=== PATIENT | male | born 1950 | race Caucasian/White ===

== ENCOUNTER 2018-01-21 07:21 | Day surgery (SDC) | payer MEDICARE, OTHER ==
[2018-01-21] MEDS ORDERED: MIDAZOLAM 2 MG/2 ML INJ ONE (10:36)
[2018-01-21] MEDS ORDERED: PROPOFOL INJ 200 MG/20 ML VIAL IV ONE (10:36)
[2018-01-21] MEDS ORDERED: PROMETHAZINE HCL INJ 25 MG/1 ML VIAL IV PRN (11:08)
[2018-01-21] MEDS ORDERED: DIPHENHYDRAMINE HCL 50 MG/ML VIAL IV PRN (11:08)
[2018-01-21] MEDS ORDERED: FENTANYL CITRATE INJ/PF 100 MCG/2 ML AMPUL IV PRN ×3 (11:08)
--- NOTE | 2018-01-21 11:54 | Operative Report ---
Operative Report DATE OF SURGERY: 01/21/18 Operative Report: The risks, benefits and alternatives of the procedure including risks of bleeding, perforation requiring surgery I explained to the patient in detail and informed consent is obtained. Patient is taken to the endoscopy suite and placed in the left, lateral decubital position. Timeout was called. Propofol medications administered. A rectal examination is done which did not reveal any masses, tears or fissures. An Olympus videoscope was inserted into the patient's rectum. Scope was then carefully advanced all the way to the cecum. The cecum was identified by the usual anatomical landmarks including the ileocecal valve and appendiceal office. Photodocumentation was obtained. Prep is good. Scope was then sequentially pulled back via the various segments of the colon including the ascending colon, hepatic flexure, transverse colon, splenic flexure, descending colon finally in to the rectosigmoid portions of the colon. Retroflexion maneuver is performed. The risks benefits and alternatives of the procedure explained to the patient in detail and informed consent is obtained.A reasonably try to swallow GIF Olympus video scope was inserted into the patient's mouth and hypopharynx, the esophagus is identified intubated and insufflated, the scope was then advanced through the esophagus stomach and duodenum, retroflexion maneuver is done the esophagus stomach and first and second portions of the duodenum examined PREOPERATIVE DIAGNOSIS: Gastroesophageal reflux disease. Colorectal cancer screening POSTOPERATIVE DIAGNOSIS: 3 polyps noted, 1 in the hepatic flexure that was removed and retrieved via snare polypectomy, the second at the splenic flexure and the third in the descending colon all of which are placed in separate containers. Diverticulosis. Internal hemorrhoids. Esophagitis versus Loaiza' s status post biopsy. Hiatal hernia. Gastritis status post biopsy rule out Helicobacter pylori OPERATION: Colonoscopy with snare polypectomy. EGD with biopsy SURGEON: PADMINI CORDOVA ANESTHESIA: LMAC TISSUE REMOVED OR ALTERED: As noted above. COMPLICATIONS: None. ESTIMATED BLOOD LOSS: None. INTRAOPERATIVE FINDINGS: As noted above. PROCEDURE: Patient tolerated the procedure well. No immediate postprocedure complications are noted. Patient discharged in good condition. Discharge date 01/21/2018. Discharge diet: Regular. Discharge activity: Regular. 2-3 week follow-up to discuss findings. Patient is instructed call the office or proceed to the emergency room should there be any further problems or questions. We will await pathology. Colon surveillance 3-5 years.
[2018-01-21] MEDS ORDERED: DEXTROSE 5%-1/2 NORMAL SALINE 1,000 ML IV PRN (12:46)
[2018-01-21] MEDS ORDERED: ACETAMINOPHEN 325 MG TABLET PO PRN (12:52)
[2018-01-21 13:02] VITALS: BP 145/88
[2018-01-21] MEDS ORDERED: SIMETHICONE 80 MG TAB.CHEW PO PRN (13:09)
[2018-01-21] MEDS ORDERED: PROMETHAZINE HCL INJ 25 MG/1 ML VIAL INJ PRN (13:12)
[2018-01-21] MEDS ORDERED: ONDANSETRON HCL INJ/PF 4 MG/2 ML SDV ONE (14:49)
[2018-01-21] MEDS ORDERED: LIDOCAINE 2% INJ-PF (20 MG/ML) 2 ML AMPUL ONE (14:49)
== END 2018-01-21 13:00 | disposition home or self-care (01) ==
LOC: OROUT 07:21
PROVIDERS: ATTEND Internal Medicine Gastroenterology
PROC: 0DBL8ZX Excision of Transverse Colon, Via Natural or Artificial Opening Endoscopic, Diagnostic (ICD-10-PCS; 2018-01-21)
PROC: 0DB58ZX Excision of Esophagus, Via Natural or Artificial Opening Endoscopic, Diagnostic (ICD-10-PCS; 2018-01-21)
PROC: 0DB68ZX Excision of Stomach, Via Natural or Artificial Opening Endoscopic, Diagnostic (ICD-10-PCS; principal; 2018-01-21 10:30)
PROC: 0DBM8ZX Excision of Descending Colon, Via Natural or Artificial Opening Endoscopic, Diagnostic (ICD-10-PCS; 2018-01-21 10:30)
DX: Z12.11 Encounter for screening for malignant neoplasm of colon (principal); D12.4 Benign neoplasm of descending colon; K63.5 Polyp of colon; K57.30 Diverticulosis of large intestine without perforation or abscess without bleeding; K64.8 Other hemorrhoids; K44.9 Diaphragmatic hernia without obstruction or gangrene; K29.50 Unspecified chronic gastritis without bleeding; K21.9 Gastro-esophageal reflux disease without esophagitis; I10 Essential (primary) hypertension; E87.5 Hyperkalemia; E78.00 Pure hypercholesterolemia, unspecified; E03.9 Hypothyroidism, unspecified; Z79.899 Other long term (current) drug therapy; Z79.82 Long term (current) use of aspirin
CPT/HCPCS: 43239; 45385; 88305 ×2; J2250; J2405; J2704; J3490; 813

== ENCOUNTER 2018-03-21 21:01 | Emergency (ER) | payer MEDICARE, OTHER ==
[2018-03-21] MEDS ORDERED: ASPIRIN 81 MG TABLET, CHEWABLE PO ONE (21:14)
--- NOTE | 2018-03-21 21:41 | EKG REPORT ---
SEVERITY:- OTHERWISE NORMAL ECG - SINUS RHYTHM MINIMAL ST ELEVATION, ANTERIOR LEADS : Confirmed by: Tommie Dixon MD 21-Mar-2018 21:41:08
[2018-03-21] MEDS ORDERED: ONDANSETRON HCL INJ/PF 4 MG/2 ML SDV IV ONE (21:55)
[2018-03-21] MEDS ORDERED: NORMAL SALINE 1000 ML 1,000 ML IV ONE (22:00)
[2018-03-21 22:44] LABS: ABSOLUTE EOSINOPHILS # (AUTO) 0.3 10^3/uL (0.0-0.6); ABSOLUTE LYMPHOCYTES (AUTO) 1.4 10^3/uL (0.5-4.7); ABSOLUTE MONOCYTES (AUTO) 0.5 10^3/uL (0.1-1.4); ABSOLUTE NEUT (AUTO) 2.3 10^3/uL (1.7-8.2); BASOPHILS % (AUTO) 0.9 % (0-2); EOSINOPHILS % (AUTO) 5.8 % (0-6); HEMATOCRIT 38.3 % (37.9-51.0); HEMOGLOBIN 12.5 g/dL (13.5-17.0); LYMPHOCYTES % (AUTO) 31.7 % (13-45); MEAN CORPUSCULAR HEMOGLOBIN 28.1 pg (27.0-33.4); MEAN CORPUSCULAR HGB CONC 32.7 g/dL (32.0-36.0); MEAN CORPUSCULAR VOLUME 86 fl (80-97); MONOCYTES % (AUTO) 11.4 % (3-13); PLATELET COUNT 251 10^3/uL (150-450); RED BLOOD COUNT 4.45 10^6/uL (4.35-5.55); RED CELL DISTRIBUTION WIDTH 16.1 % (11.5-14.0); SEGMENTED NEUTROPHILS % (AUTO) 50.2 % (42-78); TOTAL CELLS COUNTED % (AUTO) 100 %; WHITE BLOOD COUNT 4.5 10^3/uL (4.0-10.5)
[2018-03-21 23:09] LABS: ALANINE AMINOTRANSFERASE 42 U/L (21-72); ALBUMIN 4.1 g/dL (3.5-5.0); ALKALINE PHOSPHATASE 67 U/L (38-126); ASPARTATE AMINO TRANSFERASE 36 U/L (17-59); BILIRUBIN,DIRECT 0.4 mg/dL (0.0-0.4); BILIRUBIN,TOTAL 0.5 mg/dL (0.2-1.3); BLOOD UREA NITROGEN 11 mg/dL (7-20); CREATINE KINASE 180 U/L (55-170); GLUCOSE 100 mg/dL (75-110); LIPASE 237.3 U/L (23-300); POTASSIUM 3.3 mmol/L (3.6-5.0); TOTAL PROTEIN 7.1 g/dL (6.3-8.2)
[2018-03-21 23:14] LABS: CARBON DIOXIDE 16 mmol/L (22-30); CHLORIDE 91 mmol/L (98-107); SODIUM 128.3 mmol/L (137-145)
[2018-03-21 23:17] LABS: ANION GAP 21 (5-19)
[2018-03-21 23:21] LABS: CREATINE KINASE MB 2.66 ng/mL (<4.55)
[2018-03-21 23:24] LABS: TROPONIN I < 0.012 ng/mL
--- NOTE | 2018-03-21 23:56 | RADIOLOGY REPORT (SQ) ---
EXAM DESCRIPTION: XR CHEST 1 VIEW CLINICAL HISTORY: 67 years Male, chest pain COMPARISON: 11.5.15. NUMBER OF VIEWS/TECHNIQUE: 1/AP FINDINGS: Adequate lung volume, clear parenchyma, normal cardiac silhouette, and intact bony thorax. IMPRESSION: No acute cardiopulmonary findings.
--- NOTE | 2018-03-22 01:03 | ER Document Report ---
ED General - General Chief Complaint: Chest Pain Stated Complaint: CHEST PAIN Time Seen by Provider: 03/21/18 21:45 Mode of Arrival: Ambulatory Information source: Patient Notes: 67-year-old male who presents with complaints of epigastric pain that radiates into his chest and throat. Patient reports that he has long-standing history of acid reflux and over the last 6 months it has been out of control. Patient relates that approximately 1 hour prior to arrival he started having severe chest pain with vomiting as soon as he got done eating dinner. Patient reports that he has had similar symptoms before but never this bad. Patient denies any radiation of the pain. Patient denies any recent illnesses. Patient further reports that he had an endoscopy done approximately [address] Knox which did not show anything significant. TRAVEL OUTSIDE OF THE [place] IN LAST 30 DAYS: No - Related Data Allergies/Adverse Reactions: No Known Allergies Allergy (Verified 03/21/18 21:12) Past Medical History - General Information source: Patient - Social History Smoking Status: Never Smoker Chew tobacco use (# tins/day): No Frequency of alcohol use: Heavy Drug Abuse: None Family History: Reviewed & Not Pertinent Patient has suicidal ideation: No Patient has homicidal ideation: No - Past Medical History Cardiac Medical History: Reports: Hx Hypertension Denies: Hx Coronary Artery Disease, Hx Heart Attack Pulmonary Medical History: Denies: Hx Bronchitis, Hx COPD, Hx Pneumonia Neurological Medical History: Denies: Hx Cerebrovascular Accident, Hx Seizures Renal/ Medical History: Denies: Hx Peritoneal Dialysis Musculoskeltal Medical History: Denies Hx Arthritis - Immunizations Hx Diphtheria, Pertussis, Tetanus Vaccination: No Review of Systems - Review of Systems Constitutional: No symptoms reported EENT: No symptoms reported Cardiovascular: See HPI Respiratory: No symptoms reported Gastrointestinal: See HPI Genitourinary: No symptoms reported Male Genitourinary: No symptoms reported Musculoskeletal: No symptoms reported Skin: No symptoms reported Hematologic/Lymphatic: No symptoms reported Neurological/Psychological: No symptoms reported Physical Exam - Vital signs Vitals: Temp Pulse Resp BP Pulse Ox 97.4 F 74 20 139/86 H 99 03/21/18 21:13 03/21/18 21:13 03/21/18 21:13 03/21/18 21:13 03/21/18 21:13 - Notes Notes: PHYSICAL EXAMINATION: GENERAL: Well-appearing, well-nourished and in no acute distress. HEAD: Atraumatic, normocephalic. EYES: Pupils equal round and reactive to light, extraocular movements intact, sclera anicteric, conjunctiva are normal. ENT: Nares patent, oropharynx clear without exudates. Moist mucous membranes. NECK: Normal range of motion, supple without lymphadenopathy LUNGS: Breath sounds clear to auscultation bilaterally and equal. No wheezes rales or rhonchi. HEART: Regular rate and rhythm without murmurs ABDOMEN: Soft, nondistended abdomen, tender over the epigastrum. No guarding, no rebound. No masses appreciated. Musculoskeletal: Normal range of motion, no pitting or edema. No cyanosis. NEUROLOGICAL: Cranial nerves grossly intact. Normal speech, normal gait. Normal sensory, motor exams PSYCH: Normal mood, normal affect. SKIN: Warm, Dry, normal turgor, no rashes or lesions noted. Course - Re-evaluation Re-evalutation: Upon initial examination of the 67-year-old male patient is found to be actively dry heaving in the room. Patient given antiemetics and normal saline bolus. Patient is reporting severe symptoms of his pre-existing acid reflux, however patient states that the chest pain is worse than his usual flareups. Will rule out any cardiac cause of chest pain. Patient's EKG is sinus rhythm with no ST segment elevations or depressions. CBC is unremarkable, chemistry reveals a low sodium of 128.3 however patient is a chronic EtOH abuser, chloride is 91, CO2 is 16. Patient has no respiratory distress, patient is not hypoxic, patient's breathing is even and unlabored. Initial cardiac enzymes are negative. Chest x-ray is unremarkable. Upon reevaluation of this patient, patient reports that all of his symptoms have resolved. Patient now further states that he feels this was a flareup of his acid reflux. Explained to patient that we cannot rule out a cardiac cause without patient having a second troponin drawn. Patient did initially agree to have troponin drawn but after troponin was drawn and sent to the lab, patient declined this stating that he is ready to go and does not want to wait until the labs are resulted. Patient remains asymptomatic, chest pain-free with stable vital signs during ED stay. Very low suspicion of ACS given patient's complete resolution of symptoms, patient's history of acid reflux and symptoms that have completely mimicked his previous exacerbations. - Vital Signs Vital signs: Temp Pulse Resp BP Pulse Ox 97.9 F 74 19 116/84 97 03/22/18 00:42 03/21/18 21:13 03/22/18 01:01 03/22/18 01:01 03/22/18 01:01 - Laboratory Result Diagrams: 03/21/18 22:20 03/21/18 22:20 Laboratory results interpreted by me: 03/21/18 03/21/18 22:20 22:20 Hgb 12.5 L RDW 16.1 H Sodium 128.3 L Potassium 3.3 L Chloride 91 L Carbon Dioxide 16 L Anion Gap 21 H Creatine Kinase 180 H Discharge - Discharge Clinical Impression: Vomiting Qualifiers: Vomiting type: unspecified Vomiting Intractability: non-intractable Nausea presence: unspecified Qualified Code(s): R11.10 - Vomiting, unspecified Chest pain Qualifiers: Chest pain type: unspecified Qualified Code(s): R07.9 - Chest pain, unspecified Acid reflux Qualifiers: Esophagitis presence: esophagitis presence not specified Qualified Code(s): K21.9 - Gastro-esophageal reflux disease without esophagitis Condition: Stable Disposition: HOME, SELF-CARE Instructions: Antacid Therapy ([facility]), Intravenous (IV) Fluids ([facility]), Reflux Disease (GERD) ([facility]), Vomiting ([facility]) Additional Instructions: Your sodium level is low. It is very important that you follow-up with your primary care provider and have this rechecked in the next 2-3 days. Please call Friday morning for an appointment. It is likely that your chest pain was being caused by your acid reflux. Your initial workup was negative for any concerns with your heart however you did decline to stay for the second blood test that checks for heart attack. Please return to the emergency department if you develop worsening chest pain, shortness of breath, persistent vomiting, fever or any other symptoms that is concerning to you. Prescriptions: Famotidine [Pepcid 20 mg Tablet] 20 mg PO DAILY #20 tablet Sucralfate [Carafate 1 gm Tablet] 1 gm PO QID #20 tablet Referrals: CELSO CONTI NP-C [Primary Care Provider] - Follow up as needed
[2018-03-22 01:11] VITALS: BP 116/84
== END 2018-03-22 01:16 | disposition home or self-care (01) ==
LOC: ER 21:01
DX: K21.9 Gastro-esophageal reflux disease without esophagitis (principal); R07.9 Chest pain, unspecified; R11.10 Vomiting, unspecified; R10.13 Epigastric pain; R07.0 Pain in throat; I10 Essential (primary) hypertension
CPT/HCPCS: 93005; 99285; 96361; 96374; 36415; 82553; 82550; 83690; 85025; 80053; 84484; 71045; 93010; J2405; J7030

== ENCOUNTER → 2018-04-01 | Outpatient (CLI) | payer MEDICARE, OTHER ==
--- NOTE | 2018-04-01 12:34 | RADIOLOGY REPORT (SQ) ---
EXAM DESCRIPTION: U/S ABD AORTIC SCREENING COMPLETED DATE/TIME: 04/01/2018 12:07 pm REASON FOR STUDY: HTN I10 ESSENTIAL (PRIMARY) HYPERTENSION COMPARISON: None. TECHNIQUE: Static and dynamic grayscale images acquired of the aorta and stored on PACs. Selected co shiv Doppler and spectral images recorded. LIMITATIONS: None. FINDINGS: AORTIC CALIBER MAXIMAL PROXIMAL: 2.3 cm. MID: 2.0 cm. DISTAL: 1.7 cm. ILIAC DIAMETER RIGHT: 1.2 cm. LEFT: 1.1 cm. OTHER: No other significant finding. IMPRESSION: NO ABDOMINAL AORTIC ANEURYSM. COMMENT: Aorta screening examinations categories: Negative - less than 3 cm. TECHNICAL DOCUMENTATION: JOB ID: [id number] [employer]- All Rights Reserved Reading location - IP/workstation name: [email or web address]
--- NOTE | 2018-04-01 20:54 | XCELERA REPORT ---
[address] [address] Transthoracic Echocardiogram Report Name: DAPHNE SCHMIDT Age: 67 yrs Gender: Male : 1950 Patient Status: Outpatient Patient Location: RAD Study Date: 04/01/2018 12:23 PM Height: 67 in Weight: 170 lb BSA: 1.9 m2 Reason For Study: HTN Ordering Physician: CELSO CONTI FORENSIC INVESTIGATOR-[place] Performed By: Luana Martins Interpretation Summary Calcified ao root with no dilatation. Mod calcified RCC cusps, 3 cusp AV with no stenosis, Peaked AV jeovany 1.8m/s, PPG 13mm Hg. and mod AR with no LV dilatation, LVESD 27-29 mm. Mild MAC, with no MS, no MVP, thickened MV leaflets, mild MR, and no LA enlargement. Subaortic septal hypertrophy, with no LVOT obstruction. .Incomplete LVsegmental analysis, Lat wall not well imaged. LVEF about 60% with no LVDD. RH normal mild TR, RVSP 28 no PHTN, No ASD. MMode/2D Measurements & Calculations RVDd: 3.2 cm LVIDd: 4.4 cm FS: 33.5 % Ao root diam: 3.2 cm IVSd: 1.0 cm LVIDs: 2.9 cm EDV(Teich): 89.0 ml LVPWd: 0.96 cm ESV(Teich): 33.4 ml Ao root area: 8.0 cm2 EF(Teich): 62.5 % Doppler Measurements & Calculations MV E max jeovany: MV dec slope: Ao V2 max: AI max jeovany: 80.5 cm/sec 179.4 cm/sec 412.7 cm/sec MV A max jeovany: 351.2 cm/sec2 Ao max PG: AI max P.3 cm/sec MV dec time: 12.9 mmHg 68.1 mmHg MV E/A: 0.91 0.23 sec AI dec slope: 141.2 cm/sec2 AI P1/2t: 856.3 msec LV V1 max PG: PA V2 max: PI end-d jeovany: TR max jeovany: 4.7 mmHg 63.7 cm/sec 92.9 cm/sec 237.2 cm/sec LV V1 max: PA max P.6 mmHg TR max P.0 cm/sec 22.6 mmHg Left Ventricle The left ventricle is normal in size. Proximal septal thickening is noted. The left ventricular ejection fraction is normal. LV EF is 60%. Doppler measurements suggest normal left ventricular diastolic function. Right Ventricle The right ventricle is normal in size, thickness and function. Atria The right atrium is normal in size. The left atrial size is normal. The interatrial septum is intact with no evidence for an atrial septal defect. Mitral Valve There is mild mitral annular calcification. The mitral valve leaflets appear thickened, but open well. There is no evidence of mitral valve prolapse. There is no mitral valve stenosis. There is a mild amount of mitral regurgitation. Aortic Valve The aortic valve is calcified. The aortic valve is trileaflet. The aortic valve opens well. There is no aortic valvular vegetation. There is mild aortic stenosis. There is a moderate amount of aortic regurgitation. There is an eccentric jet of aortic insufficiency directed against the anterior mitral leaflet. Tricuspid Valve There is a mild amount of tricuspid regurgitation. Best estimated RVSP is approximately 28 mm/Hg. Pulmonic Valve The pulmonic valve is not well visualized. There is a trace or physiologic amount of pulmonic regurgitation. Great Vessels The aortic root is normal size. There is aortic root sclerosis/calcification. Effusions There is no pericardial effusion. I WMSI = 1.00 % Normal = 100 Segments Size X - Cannot 2 - 4 - 1-2 small Interpret 1 - Normal Hypokinetic 3 - AkineticDyskinetic 3-5 moderate 5 - 6-14 large Aneurysmal 15-16 diffuse : JONATHAN BARBOSA > Tommie Dixon
== END ==
LOC: RAD 11:18
PROVIDERS: ATTEND Nurse Practitioner
DX: Z13.6 Encounter for screening for cardiovascular disorders (principal); R10.9 Unspecified abdominal pain; I10 Essential (primary) hypertension; R01.1 Cardiac murmur, unspecified
CPT/HCPCS: 76706; 93306

== ENCOUNTER → 2018-06-24 | Outpatient (CLI) | payer MEDICARE, OTHER ==
[2018-06-24 08:29] LABS: ALANINE AMINOTRANSFERASE 30 U/L (21-72); ALBUMIN 3.8 g/dL (3.5-5.0); ALKALINE PHOSPHATASE 61 U/L (38-126); ANION GAP 12 (5-19); ASPARTATE AMINO TRANSFERASE 32 U/L (17-59); BILIRUBIN,DIRECT 0.2 mg/dL (0.0-0.4); BILIRUBIN,TOTAL 0.6 mg/dL (0.2-1.3); BLOOD UREA NITROGEN 9 mg/dL (7-20); CALCIUM 9.2 mg/dL (8.4-10.2); CARBON DIOXIDE 26 mmol/L (22-30); CHLORIDE 99 mmol/L (98-107); CHOLESTEROL 138.57 mg/dL (0-200); CREATINE KINASE 72 U/L (55-170); GLUCOSE 91 mg/dL (75-110); POTASSIUM 4.2 mmol/L (3.6-5.0); SODIUM 136.8 mmol/L (137-145); TOTAL PROTEIN 6.8 g/dL (6.3-8.2); TRIGLYCERIDES 196 mg/dL (<150)
[2018-06-24 08:40] LABS: DIRECT LDL 31 mg/dL (<100)
[2018-06-24 08:44] LABS: VLDL CHOLESTEROL 39.2 mg/dL (10-31)
== END ==
LOC: OD 07:16
PROVIDERS: ATTEND Internal Medicine Cardiovascular Disease
DX: E78.00 Pure hypercholesterolemia, unspecified (principal); E03.9 Hypothyroidism, unspecified; I10 Essential (primary) hypertension; R06.02 Shortness of breath; Z79.899 Other long term (current) drug therapy
CPT/HCPCS: 36415; 80048; 80061; 80076; 82550; 84443

== ENCOUNTER → 2018-08-21 | Outpatient (CLI) | payer MEDICARE, OTHER ==
[2018-08-21 10:24] LABS: ALANINE AMINOTRANSFERASE 37 U/L (21-72); ALBUMIN 4.3 g/dL (3.5-5.0); ALKALINE PHOSPHATASE 73 U/L (38-126); ASPARTATE AMINO TRANSFERASE 30 U/L (17-59); BILIRUBIN,DIRECT 0.3 mg/dL (0.0-0.4); CHOLESTEROL 160.28 mg/dL (0-200); CREATINE KINASE 68 U/L (55-170); TOTAL PROTEIN 7.2 g/dL (6.3-8.2); TRIGLYCERIDES 135 mg/dL (<150)
[2018-08-21 10:35] LABS: DIRECT LDL 42 mg/dL (<100)
== END ==
LOC: LAB 08:51
PROVIDERS: ATTEND Internal Medicine Cardiovascular Disease
DX: E78.00 Pure hypercholesterolemia, unspecified (principal); R94.5 Abnormal results of liver function studies; Z79.899 Other long term (current) drug therapy
CPT/HCPCS: 36415; 80061; 80076; 82550; 82977

== ENCOUNTER → 2018-11-19 | Outpatient (CLI) | payer MEDICARE, OTHER ==
[2018-11-19 10:19] LABS: ALANINE AMINOTRANSFERASE 30 U/L (21-72); ALBUMIN 4.5 g/dL (3.5-5.0); ALKALINE PHOSPHATASE 77 U/L (38-126); ASPARTATE AMINO TRANSFERASE 35 U/L (17-59); BILIRUBIN,DIRECT 0.4 mg/dL (0.0-0.4); BILIRUBIN,TOTAL 1.4 mg/dL (0.2-1.3); GAMMA-GLUTAMYL TRANSFERASE 66 U/L (8-78); TOTAL PROTEIN 7.1 g/dL (6.3-8.2)
== END ==
LOC: OD 08:41
PROVIDERS: ATTEND Internal Medicine Cardiovascular Disease
DX: F10.10 Alcohol abuse, uncomplicated (principal); R94.5 Abnormal results of liver function studies
CPT/HCPCS: 36415; 80076; 82977

== ENCOUNTER → 2019-02-26 | Outpatient (CLI) | payer MEDICARE, OTHER ==
[2019-02-26 08:13] LABS: ALANINE AMINOTRANSFERASE 36 U/L (21-72); ALKALINE PHOSPHATASE 69 U/L (38-126); ANION GAP 12 (5-19); ASPARTATE AMINO TRANSFERASE 32 U/L (17-59); BILIRUBIN,DIRECT 0.3 mg/dL (0.0-0.4); BLOOD UREA NITROGEN 10 mg/dL (7-20); CALCIUM 9.5 mg/dL (8.4-10.2); CARBON DIOXIDE 24 mmol/L (22-30); CHLORIDE 98 mmol/L (98-107); CHOLESTEROL 133.21 mg/dL (0-200); GAMMA-GLUTAMYL TRANSFERASE 88 U/L (8-78); GLUCOSE 83 mg/dL (75-110); POTASSIUM 4.1 mmol/L (3.6-5.0); SODIUM 133.7 mmol/L (137-145); TOTAL PROTEIN 6.9 g/dL (6.3-8.2); TRIGLYCERIDES 225 mg/dL (<150)
[2019-02-26 08:26] LABS: DIRECT LDL 37 mg/dL (<100)
== END ==
LOC: LAB 07:16
PROVIDERS: ATTEND Internal Medicine Cardiovascular Disease
DX: E78.00 Pure hypercholesterolemia, unspecified (principal); R94.5 Abnormal results of liver function studies; I10 Essential (primary) hypertension; F10.10 Alcohol abuse, uncomplicated; Z79.899 Other long term (current) drug therapy
CPT/HCPCS: 36415; 80048; 80061; 80076; 82977

== ENCOUNTER 2019-04-06 08:05 | Observation (INO) | payer MEDICARE, OTHER ==
[2019-04-06] MEDS ORDERED: ASPIRIN 81 MG TABLET, CHEWABLE PO ONE (08:33)
[2019-04-06 08:51] LABS: HEMATOCRIT 46.1 % (37.9-51.0); HEMOGLOBIN 15.7 g/dL (13.5-17.0); MEAN CORPUSCULAR HEMOGLOBIN 31.9 pg (27.0-33.4); MEAN CORPUSCULAR HGB CONC 34.1 g/dL (32.0-36.0); MEAN CORPUSCULAR VOLUME 94 fl (80-97); PLATELET COUNT 222 10^3/uL (150-450); RED BLOOD COUNT 4.93 10^6/uL (4.35-5.55); RED CELL DISTRIBUTION WIDTH 12.4 % (11.5-14.0); WHITE BLOOD COUNT 17.4 10^3/uL (4.0-10.5)
[2019-04-06 09:02] LABS: ALANINE AMINOTRANSFERASE 42 U/L (21-72); ALBUMIN 4.6 g/dL (3.5-5.0); ALKALINE PHOSPHATASE 91 U/L (38-126); ASPARTATE AMINO TRANSFERASE 44 U/L (17-59); BILIRUBIN,DIRECT 0.4 mg/dL (0.0-0.4); BILIRUBIN,TOTAL 1.1 mg/dL (0.2-1.3); BLOOD UREA NITROGEN 9 mg/dL (7-20); CALCIUM 9.4 mg/dL (8.4-10.2); CARBON DIOXIDE 20 mmol/L (22-30); CREATINE KINASE 256 U/L (55-170); GLUCOSE 112 mg/dL (75-110); TOTAL PROTEIN 7.8 g/dL (6.3-8.2)
[2019-04-06 09:06] LABS: ABSOLUTE LYMPHOCYTES# (MANUAL) 0.7 10^3/uL (0.5-4.7); ABSOLUTE MONOCYTES # (MANUAL) 1.4 10^3/uL (0.1-1.4); ABSOLUTE NEUTROPHILS# (MANUAL) 15.3 10^3/uL (1.7-8.2); BASOPHILS % (MANUAL) 0 % (0-2); EOSINOPHILS % (MANUAL) 0 % (0-6); LYMPHOCYTES % (MANUAL) 4 % (13-45); MONOCYTES % (MANUAL) 8 % (3-13); SEGMENTED NEUTROPHILS % (MAN) 88 % (42-78); TOTAL CELLS COUNTED 100
[2019-04-06 09:07] LABS: POLYCHROMASIA SLIGHT
[2019-04-06 09:08] LABS: PAPPENHEIMER BODIES PRESENT; PLATELET COMMENT ADEQUATE
--- NOTE | 2019-04-06 09:11 | RADIOLOGY REPORT (SQ) ---
EXAM DESCRIPTION: CHEST SINGLE VIEW COMPLETED DATE/TIME: 04/06/2019 8:59 am REASON FOR STUDY: bed 1 cp COMPARISON: 09/14/2015. EXAM PARAMETERS: NUMBER OF VIEWS: One view. TECHNIQUE: Single frontal radiographic view of the chest acquired. RADIATION DOSE: NA LIMITATIONS: None. FINDINGS: LUNGS AND PLEURA: No opacities, masses or pneumothorax. No pleural effusion. MEDIASTINUM AND HILAR STRUCTURES: No masses. Contour normal. HEART AND VASCULAR STRUCTURES: Heart normal in size. Normal vasculature. BONES: No acute findings. HARDWARE: None in the chest. OTHER: No other significant finding. IMPRESSION: NO ACUTE DISEASE. TECHNICAL DOCUMENTATION: JOB ID: [id number] 2010 [employer]- All Rights Reserved Reading location - IP/workstation name: [email or web address]
[2019-04-06 09:12] LABS: CREATINE KINASE MB 2.36 ng/mL (<4.55)
[2019-04-06 09:13] LABS: TROPONIN I < 0.012 ng/mL
[2019-04-06 09:19] LABS: CHLORIDE 94 mmol/L (98-107); LIPASE 116.7 U/L (23-300); SODIUM 133.4 mmol/L (137-145)
[2019-04-06 09:20] LABS: ANION GAP 19 (5-19)
[2019-04-06] MEDS ORDERED: HYDROMORPHONE HCL INJ/PF 2 MG/ML AMPULE IV ONE ×2 (09:21→14:55)
[2019-04-06] MEDS ORDERED: RINGERS SOLUTION,LACTATED 1,000 ML IV ONE ×2 (09:21→11:10)
[2019-04-06] MEDS ORDERED: ONDANSETRON HCL INJ/PF 4 MG/2 ML SDV IV ONE (09:21)
--- NOTE | 2019-04-06 11:02 | RADIOLOGY REPORT (SQ) ---
EXAM DESCRIPTION: CT ABD/PELVIS WITH IV ONLY COMPLETED DATE/TIME: 04/06/2019 10:45 am REASON FOR STUDY: general abd pain COMPARISON: None. TECHNIQUE: CT scan of the abdomen and pelvis performed using helical scanning technique with dynamic intravenous contrast injection. No oral contrast. Images reviewed with lung, soft tissue, and bone windows. Reconstructed coronal and sagittal MPR images reviewed. Delayed images for evaluation of the urinary system also acquired. All images stored on PACS. All CT scanners at this facility use dose modulation, iterative reconstruction, and/or weight based d osing when appropriate to reduce radiation dose to as low as reasonably achievable (ALARA). [facility]: Dose Right [facility]: CareDose [facility]: Dose Right [facility]: Teradose 4D [facility]: [employer] CONTRAST TYPE AND DOSE: contrast/concentration: Isovue 350.00 mg/ml; Total Contrast Delivered: 83.0 ml; Total Saline Delivered: 53.0 ml RENAL FUNCTION: GFR > 60. RADIATION DOSE: CT Rad equipment meets quality standard of care and radiation dose reduction techniq ues were employed. CTDIvol: 7.2 - 10.3 mGy. DLP: 944 mGy-cm.. LIMITATIONS: None. FINDINGS: LOWER CHEST: No significant findings. No nodules or infiltrates. LIVER: About the gallbladder fossa SPLEEN: Normal size. No focal lesions. PANCREAS: No masses. No significant calcifications. No adjacent inflammation or peripancreatic fluid collections. Pancreatic duct not dilated. GALLBLADDER: There is gallbladder wall thickening and pericholecystic fat stranding, with mild hypere maldonado of the adjacent liver parenchyma. ADRENAL GLANDS: No significant masses or asymmetry. RIGHT KIDNEY AND URETER: No solid masses. No significant calcifications. No hydronephrosis or hyd roureter. LEFT KIDNEY AND URETER: No solid masses. No significant calcifications. No hydronephrosis or hydr oureter. AORTA AND VESSELS: No aneurysm. No dissection. Renal arteries, SMA, celiac without stenosis. RETROPERITONEUM: No retroperitoneal adenopathy, hemorrhage or masses. BOWEL AND PERITONEAL CAVITY: No masses or inflammatory changes. No free fluid or peritoneal masses. Sigmoid diverticulosis. Small volume free fluid in the right paracolic gutter. APPENDIX: Normal. PELVIS: No mass. No free fluid. Normal bladder. ABDOMINAL WALL: No masses. No hernias. BONES: No significant or acute findings. OTHER: No other significant finding. IMPRESSION: 1. There is gallbladder wall thickening and pericholecystic fat stranding, with mild hyp eremia of the adjacent liver parenchyma. Findings are concerning for acute cholecystitis. There are no radiodense gallstones. 2. Small volume free fluid in the right paracolic gutter, likely reactive. The appendix is normal. TECHNICAL DOCUMENTATION: JOB ID: [id number] Quality ID # [id number]: Final reports with documentation of one or more dose reduction techniques (e.g., Au tomated exposure control, adjustment of the mA and/or kV according to patient size, use of iterative reconstruction technique) 2010 [employer]- All Rights Reserved Reading location - IP/workstation name: [email or web address]
[2019-04-06] MEDS ORDERED: CEFTRIAXONE 1 GM/D5W RTU 1 GM/50 ML RTUPB IV ONE (11:13)
--- NOTE | 2019-04-06 11:17 | ER Document Report ---
ED General - General Chief Complaint: Chest Pain > 30 Stated Complaint: CHEST PAIN Time Seen by Provider: 04/06/19 08:53 Primary Care Provider: ZENIA COOK MD [Primary Care Provider] - Follow up as needed Notes: Patient is a 68-year-old male presents to the emergency department for generalized abdominal pain. Patient states started around 2200 hrs. last night. States he was watching TV and all of a sudden started with some epigastric abdominal pain. Patient states at times he felt it radiated into the center of his chest but now all of his pain is in his abdomen. Patient states pain is intermittent right upper quadrant and then "all over." Patient states had multiple episodes of vomiting last night over 15, is denying any blood. Patient also had 2 episodes of diarrhea also denying any blood. Patient's denying any fevers. Patient is currently denying any chest pain shortness of breath. States all of his pain is in his abdomen region. Past medical history: Hypertension, hyperlipidemia, GERD, hypothyroid Medications: Synthroid, Lipitor, Micardis, aspirin, Nexium, iron Allergies: None Surgical history: Tonsillectomy TRAVEL OUTSIDE OF THE [place] IN LAST 30 DAYS: No - Related Data Allergies/Adverse Reactions: No Known Allergies Allergy (Verified 04/06/19 08:06) Past Medical History - General Information source: Patient - Social History Smoking Status: Never Smoker Chew tobacco use (# tins/day): No Frequency of alcohol use: Heavy Drug Abuse: None Family History: Reviewed & Not Pertinent Patient has suicidal ideation: No Patient has homicidal ideation: No - Past Medical History Cardiac Medical History: Reports: Hx Hypercholesterolemia, Hx Hypertension Denies: Hx Coronary Artery Disease, Hx Heart Attack Pulmonary Medical History: Denies: Hx Bronchitis, Hx COPD, Hx Pneumonia Neurological Medical History: Denies: Hx Cerebrovascular Accident, Hx Seizures Renal/ Medical History: Denies: Hx Peritoneal Dialysis GI Medical History: Reports: Hx Gastroesophageal Reflux Disease Musculoskeletal Medical History: Denies Hx Arthritis Past Surgical History: Reports: Hx Tonsillectomy - Immunizations Hx Diphtheria, Pertussis, Tetanus Vaccination: No Review of Systems - Review of Systems Constitutional: denies: Fever EENT: No symptoms reported Cardiovascular: See HPI Respiratory: No symptoms reported Gastrointestinal: See HPI Genitourinary: No symptoms reported Male Genitourinary: No symptoms reported Musculoskeletal: No symptoms reported Skin: No symptoms reported Hematologic/Lymphatic: No symptoms reported Neurological/Psychological: No symptoms reported Physical Exam - Vital signs Vitals: Temp Pulse Resp BP Pulse Ox 97.7 F 88 22 H 134/83 H 100 04/06/19 08:07 04/06/19 08:07 04/06/19 08:07 04/06/19 08:07 04/06/19 08:07 - Notes Notes: GENERAL: Alert, interacts well. No acute distress. HEAD: Normocephalic, atraumatic. EYES: Pupils equal, round, and reactive to light. Extraocular movements intact. ENT: Oral mucosa moist, tongue midline. NECK: Full range of motion. Supple. Trachea midline. LUNGS: Clear to auscultation bilaterally, no wheezes, rales, or rhonchi. No respiratory distress. HEART: Regular rate and rhythm. No murmur ABDOMEN: Soft, Non-distended. Bowel sounds present in all 4 quadrants. Generalized tenderness all 4 quadrants, more so right upper quadrant. EXTREMITIES: Moves all 4 extremities spontaneously. No edema, normal radial and dorsalis pedis pulses bilaterally. No cyanosis. BACK: no cervical, thoracic, lumbar midline tenderness. No saddle anesthesia, normal distal neurovascular exam. NEUROLOGICAL: Alert and oriented x3. Normal speech. cranial nerves II through XII grossly intact PSYCH: Normal affect, normal mood. SKIN: Warm, dry, normal turgor. No rashes or lesions noted. Genitalia exam: Patient's is in the room, helps take the patient's briefs off. Circumcised penis, no active discharge at the meatus, bilateral testicles nonerythematous nontender. Course - Re-evaluation Re-evalutation: 04/06/19 11:16 Chest X-Ray 04/06/19 08:33 IMPRESSION: NO ACUTE DISEASE. Abdomen/Pelvis CT 04/06/19 09:21 IMPRESSION: 1. There is gallbladder wall thickening and pericholecystic fat stranding, with mild hyperemia of the adjacent liver parenchyma. Findings are concerning for acute cholecystitis. There are no radiodense gallstones. 2. Small volume free fluid in the right paracolic gutter, likely reactive. The appendix is normal. Initial lab work had been ordered by triage nurse. Upon my taking care of the patient I noted his white count was 17. Due to his generalized tenderness in all quadrants I opted for a CT rather than ultrasound of just his right upper quadrant. Patient CT as above. I have discussed this case with surgeon Dr. Eleazar Myers. He states he will come to the emergency department to evaluate the patient. Patient continues to be n.p.o., another liter of fluid Alejo, antibiot ics ordered. Patient currently states pain has much improved and is denying any further pain management. 04/06/19 11:[address] Myers is in the emergency department currently. States they will take the patient to the operating room. Patient continues to be hemodynamically stable. - Vital Signs Vital signs: Temp Pulse Resp BP Pulse Ox 97.7 F 88 15 162/87 H 94 04/06/19 08:07 04/06/19 08:07 04/06/19 11:00 04/06/19 10:01 04/06/19 11:00 - Laboratory Result Diagrams: 04/06/19 08:30 04/06/19 08:30 Laboratory results interpreted by me: 04/06/19 04/06/19 08:30 08:30 WBC 17.4 H Seg Neuts % (Manual) 88 H Lymphocytes % (Manual) 4 L Abs Neuts (Manual) 15.3 H Sodium 133.4 L Chloride 94 L Carbon Dioxide 20 L Glucose 112 H Creatine Kinase 256 H Discharge - Discharge Clinical Impression: Cholecystitis Condition: Stable Disposition: ADMITTED INPATIENT Admitting Provider: Surgicalist - Dr. Hoang Myers Unit Admitted: Surgical Floor Referrals: ZENIA COOK MD [Primary Care Provider] - Follow up as needed
[2019-04-06] MEDS ORDERED: NORMAL SALINE 1000 ML 1,000 ML IV PRN (11:29)
--- NOTE | 2019-04-06 11:51 | PDOC H&P ---
History of Present Illness Admission Date/PCP: 04/06/19 11:42 ZENIA COOK MD Patient complains of: Abdominal pain History of Present Illness: DAPHNE SCHMIDT is a 68 year old male presenting with a 2-day history of right upper quadrant abdominal pain, severe with associated nausea and vomiting. No fevers or chills. No jaundice. No prior episode of this sort of pain. Pain started after eating. Patient does have a history of alcohol abuse drinking about 5 beers a day. Denies any health associated consequences of alcohol. Past Medical History Cardiac Medical History: Reports: Hyperlipidema, Hypertension Denies: Coronary Artery Disease, Myocardial Infarction Pulmonary Medical History: Denies: Bronchitis, Chronic Obstructive Pulmonary Disease (COPD), Pneumonia Neurological Medical History: Denies: Seizures GI Medical History: Reports: Gastroesophageal Reflux Disease Musculoskeltal Medical History: Denies: Arthritis Hematology: Denies: Anemia Past Surgical History Past Surgical History: Reports: Tonsillectomy Social History Smoking Status: Never Smoker Frequency of Alcohol Use: Heavy - Drinks at least 4-5 beers a day for a number of years. Hx Recreational Drug Use: No Family History Family History: Reviewed & Not Pertinent Parental Family History Reviewed: Yes - Mom with breast cancer Children Family History Reviewed: Yes Sibling(s) Family History Reviewed.: Yes Medication/Allergy Home Medications: Aspirin [Aspirin 81 mg Chewable Tablet] 81 mg PO DAILY 01/21/18 Fexofenadine HCl [Serenity] 30 mg PO DAILY 01/21/18 Levothyroxine Sodium [Synthroid 0.088 mg Tablet] 1 tab DAILY 01/21/18 Omeprazole Magnesium [Prilosec Otc] 20 mg PO DAILY 01/21/18 Telmisartan [Micardis] 80 mg PO DAILY 01/21/18 Famotidine [Pepcid 20 mg Tablet] 20 mg PO DAILY #20 tablet 03/22/18 Sucralfate [Carafate 1 gm Tablet] 1 gm PO QID #20 tablet 03/22/18 Allergies/Adverse Reactions: No Known Allergies Allergy (Verified 04/06/19 08:06) Review of Systems All systems: reviewed and no additional remarkable complaints except as stated Cardiovascular: PRESENT: other - No chest pain and no shortness of breath Gastrointestinal: PRESENT: as per HPI Physical Exam Vital Signs: Temp Pulse Resp BP Pulse Ox 97.7 F 88 15 162/87 H 94 04/06/19 08:07 04/06/19 08:07 04/06/19 11:00 04/06/19 10:01 04/06/19 11:00 Intake & Output 04/05/19 04/06/19 04/07/19 06:59 06:59 06:59 Intake Total 1000 Balance 1000 Weight 73.4 kg General appearance: PRESENT: no acute distress, cooperative Eye exam: PRESENT: conjunctiva pink Neck exam: PRESENT: other - Neck supple with no masses Respiratory exam: PRESENT: clear to auscultation prabhjot Cardiovascular exam: PRESENT: RRR GI/Abdominal exam: PRESENT: other - Soft, nondistended, tender across the right upper quadrant with positive Ramirez sign Extremities exam: PRESENT: other - No swelling and no tenderness Neurological exam: PRESENT: alert, awake Psychiatric exam: PRESENT: appropriate affect Skin exam: PRESENT: warm Results Laboratory Results: 04/06/19 08:30 04/06/19 08:30 04/06/19 04/06/19 08:30 08:30 WBC 17.4 H RBC 4.93 Hgb 15.7 Hct 46.1 MCV 94 MCH 31.9 MCHC 34.1 RDW 12.4 Plt Count 222 Seg Neutrophils % Not Reportable Lymphocytes % Not Reportable Monocytes % Not Reportable Eosinophils % Not Reportable Basophils % Not Reportable Absolute Neutrophils Not Reportable Absolute Lymphocytes Not Reportable Absolute Monocytes Not Reportable Absolute Eosinophils Not Reportable Absolute Basophils Not Reportable Sodium 133.4 L Potassium 4.0 Chloride 94 L Carbon Dioxide 20 L Anion Gap 19 BUN 9 Creatinine 0.90 Est GFR ( Amer) > 60 Est GFR (Non-Af Amer) > 60 Glucose 112 H Calcium 9.4 Total Bilirubin 1.1 AST 44 ALT 42 Alkaline Phosphatase 91 Total Protein 7.8 Albumin 4.6 Lipase 116.7 04/06/19 04/06/19 08:30 08:30 Creatine Kinase 256 H CK-MB (CK-2) 2.36 Troponin I < 0.012 Impressions: Chest X-Ray 04/06/19 08:33 IMPRESSION: NO ACUTE DISEASE. Abdomen/Pelvis CT 04/06/19 09:21 IMPRESSION: 1. There is gallbladder wall thickening and pericholecystic fat stranding, with mild hyperemia of the adjacent liver parenchyma. Findings are concerning for acute cholecystitis. There are no radiodense gallstones. 2. Small volume free fluid in the right paracolic gutter, likely reactive. The appendix is normal. Assessment & Plan - Diagnosis (1) Cholecystitis Is this a current diagnosis for this admission?: Yes Plan: Plan laparoscopic cholecystectomy, possible open cholecystectomy. I discussed with the patient the risk and benefits of the surgery including risk of cardiopulmonary complications, infection, bleeding,mistaken diagnosis, bile duct and intestinal injury, postcholecystectomy diarrhea. Patient understands and agrees to proceed. (2) Alcoholism Is this a current diagnosis for this admission?: Yes Plan: Will place on thiamine and folate and his maintenance IV fluid. Expect short hospital stay for his gallbladder disease.
[2019-04-06] MEDS ORDERED: NEOSTIGMINE METHYLSULFATE 10 MG/10 ML VIAL ONE (12:13)
[2019-04-06] MEDS ORDERED: SUCCINYLCHOLINE CHLORIDE INJ 200 MG/10 ML VIAL ONE (12:13)
[2019-04-06] MEDS ORDERED: GLYCOPYRROLATE 1 MG/5 ML SYRINGE ONE (12:13)
[2019-04-06] MEDS ORDERED: ROCURONIUM BROMIDE INJ 50 MG/5 ML VIAL IV ONE (12:13)
[2019-04-06] MEDS ORDERED: PHENYLEPHRINE HCL INJ/PF 10 MG/1 ML SDV ONE (12:13)
[2019-04-06] MEDS ORDERED: [UNRECOGNIZED DRUG - REMARK] IV SCH ×4 (14:00)
[2019-04-06] MEDS ORDERED: HYDROMORPHONE HCL INJ/PF 2 MG/ML AMPULE ONE ×2 (17:44→18:27)
[2019-04-06] MEDS ORDERED: HYDROMORPHONE HCL INJ/PF 2 MG/ML AMPULE IV PRN (17:44)
[2019-04-06] MEDS ORDERED: FENTANYL CITRATE INJ/PF 100 MCG/2 ML AMPUL ONE ×2 (18:26→21:18)
[2019-04-06] MEDS ORDERED: ONDANSETRON HCL INJ/PF 4 MG/2 ML SDV ONE (18:27)
[2019-04-06] MEDS ORDERED: PROPOFOL INJ 200 MG/20 ML VIAL IV ONE (18:27)
[2019-04-06] MEDS ORDERED: MIDAZOLAM 2 MG/2 ML INJ ONE (18:27)
[2019-04-06] MEDS ORDERED: MEPERIDINE HCL/PF INJ 25 MG/1 ML DISP.SYRIN IV PRN (18:37)
[2019-04-06] MEDS ORDERED: FENTANYL CITRATE INJ/PF 100 MCG/2 ML AMPUL IV PRN ×3 (18:37)
[2019-04-06] MEDS ORDERED: PROMETHAZINE HCL INJ 25 MG/1 ML VIAL IV PRN (18:37)
[2019-04-06] MEDS ORDERED: DIPHENHYDRAMINE HCL 50 MG/ML VIAL IV PRN (18:37)
--- NOTE | 2019-04-06 18:37 | EKG REPORT ---
SEVERITY:- NORMAL ECG - SINUS RHYTHM : Confirmed by: Merced Novak MD 06-Apr-2019 18:36:33
[2019-04-06] MEDS ORDERED: BUPIVACAINE HCL 0.25 % INJ/PF (2.5 MG/1 ML) 30 ML VIAL ONE (19:48)
[2019-04-06] MEDS ORDERED: CEFAZOLIN INJ 1 GM VIAL ONE (19:55)
[2019-04-06] MEDS ORDERED: MORPHINE SULFATE 10 MG/ML INJ IV PRN (21:08)
[2019-04-06] MEDS ORDERED: ONDANSETRON HCL INJ/PF 4 MG/2 ML SDV IV PRN (21:08)
--- NOTE | 2019-04-06 21:08 | Operative Report ---
Operative Report DATE OF SURGERY: 04/06/19 PREOPERATIVE DIAGNOSIS: Cholecystitis POSTOPERATIVE DIAGNOSIS: Gangrenous cholecystitis OPERATION: Laparoscopic cholecystectomy SURGEON: GONZALEZ GARZA ANESTHESIA: GA TISSUE REMOVED OR ALTERED: Gallbladder COMPLICATIONS: None ESTIMATED BLOOD LOSS: 50 cc INTRAOPERATIVE FINDINGS: Gangrenous gallbladder PROCEDURE: Informed consent was obtained. Patient was brought to the operating room placed operating table in supine position. After satisfactory induction of general anesthesia, patient's abdomen was prepped and draped in usual sterile fashion. A supraumbilical midline incision was made and dissection carried down to the fascia the peritoneal cavity entered without difficulty. Whitten trocar was inserted. Pneumoperitoneum produced good patient toleration. 5 mm trocar was placed in the subxiphoid location.Two 5 mm trochars were placed in the right subcostal location. The omentum was firmly adhered to a distended markedly inflamed gallbladder. The omentum was dissected away from the gallbladder revealing gallbladder wall that appeared gangrenous. Tissues were all fragile and inflamed making the dissection difficult. The liver appeared normal. The gallbladder had to be decompressed with a decompression needle. Aspiration yie lded turbid but bilious fluid. The gallbladder was grasped and retracted cephalad over the dome of the liver. The infundibulum of the gallbladder was grasped retracted laterally and inferiorly thus exposing calot's triangle. The cystic duct gallbladder junction was clearly identified and the cystic duct was clipped and divided. Cystic artery was likewise taken. There was a posterior branch of the cystic artery which was also clipped and divided. The gallbladder was taken off the gallbladder bed using the hook electrocautery technique. The gallbladder was removed intact with an Endobag through the Whitten trocar site fascial defect. Operative field was irrigated and irrigant aspirated out. Small bleeding points on the omentum were controlled with electrocautery taking great care to avoid injury to the underlying colon. Hemostasis appeared good at the end of the case. Irrigation fluid was clear at the end of the case. All trochars were removed under the direct vision a laparoscope to ensure hemostasis. The Whitten trocar site fascial defect was closed with interrupted Vicryl sutures. All skin incisions were closed with subcuticular interrupted Monocryl sutures. Marcaine was injected at the port sites. Patient tolerated procedure well no apparent complications and was taken to the recovery area in stable condition.
[2019-04-06] MEDS ORDERED: DIAZEPAM INJ 10 MG/2 ML DISP.SYRIN IV PRN (22:56)
[2019-04-06] MEDS: DIAZEPAM 5 MG TABLET PO SCH (23:41)
[2019-04-06] MEDS: CEFAZOLIN 1 GM/D5W RTU 1 GM/50 ML RTUPB IV SCH (23:50)
--- NOTE | 2019-04-07 02:27 | PDOC CONSULTATION ---
Consultation Consult Date: 04/06/19 Attending physician:: GONZALEZ GARZA Provider Consulted: TONY FRANCES Consult reason:: Daily alcohol use concern fro prevention of acute alcohol withdrawl and follow up care. History of Present Illness Admission Date/PCP: 04/06/19 11:42 ZENIA COOK MD Patient complains of: Abdominal pain History of Present Illness: DAPHNE SCHMIDT is a 68 year old male who presented to the emergency room with a 2-day history of right upper quadrant abdominal pain. He complained that for 2 days he had had persistent, severe, nonradiating, constant, gripping/cramping, pressure-like pain in his right upper abdomen which began a short while after eating a meal. He admits that the pain has been associated with nausea and vomiting as well as decreased oral intake. He denies prior similar episodes and had not identified any aggravating or ameliorating factors for his pain. He further admits daily alcohol abuse consuming 4-6 beers per day. He was admitted by the surgical service who has consulted the hospitalist service for management of his potential alcohol withdrawal. Past Medical History Cardiac Medical History: Reports: Hyperlipidema, Hypertension Denies: Coronary Artery Disease, Myocardial Infarction Pulmonary Medical History: Denies: Bronchitis, Chronic Obstructive Pulmonary Disease (COPD), Pneumonia EENT Medical History: Denies: Cataracts, Ears - Hearing aids Neurological Medical History: Denies: Hemorrhagic CVA, Ischemic CVA, Seizures Endocrine Medical History: Reports: Hypothyroidism Denies: Diabetes Mellitus Type 1, Diabetes Mellitus Type 2, Hyperthyroidism, Obesity Renal/ Medical History: Denies: Chronic Kidney Disease, Nephrolithiasis Malignancy Medical History: Reports: None GI Medical History: Reports: Gastroesophageal Reflux Disease Denies: Crohn's Disease, Ulcerative Colitis Musculoskeltal Medical History: Denies: Arthritis, Gout Skin Medical History: Denies: Eczema, Psoriasis Psychiatric Medical History: Reports: Alcohol Dependency Denies: Substance Abuse, Tobacco Dependency Traumatic Medical History: Reports: None Hematology: Denies: Anemia, Bleeding Tendencies Infectious Medical History: Reports: None Past Surgical History Past Surgical History: Reports: Tonsillectomy Social History Information Source: Patient Lives with: Spouse/Significant other Smoking Status: Never Smoker Frequency of Alcohol Use: Heavy - 4-6 beers per day Hx Recreational Drug Use: No Drugs: None Hx Prescription Drug Abuse: No - Advance Directive Resuscitation Status: Full Code Family History Family History: CAD, Hypertension, Malignancy Parental Family History Reviewed: Yes Children Family History Reviewed: No Sibling(s) Family History Reviewed.: Yes Medication/Allergy Home Medications: Aspirin [Ecotrin 81 mg EC Tablet] 81 mg PO DAILY 04/06/19 Atorvastatin Calcium [Lipitor 40 mg Tablet] 40 mg PO DAILY 04/06/19 Esomeprazole Mag Trihydrate [Nexium] 40 mg PO DAILY 04/06/19 Ferrous Sulfate [Feosol 325 mg Tablet] 325 mg PO DAILY 04/06/19 Fexofenadine HCl [Serenity] 180 mg PO DAILY 04/06/19 Levothyroxine Sodium [Synthroid 0.088 mg Tablet] 88 mcg PO Q6AM 04/06/19 Telmisartan [Micardis 80 mg Tablet] 80 mg PO DAILY 04/06/19 Allergies/Adverse Reactions: No Known Allergies Allergy (Verified 04/06/19 08:06) Review of Systems Constitutional: PRESENT: as per HPI, anorexia. ABSENT: chills, fever(s) Eyes: ABSENT: visual disturbances, other - Ocular pain Ears: ABSENT: hearing changes, other - Ear pain Nose, Mouth, and Throat: ABSENT: mouth pain, sore throat Cardiovascular: ABSENT: chest pain, palpitations Respiratory: ABSENT: cough, dyspnea Gastrointestinal: PRESENT: as per HPI, abdominal pain, nausea, vomiting. ABSENT: coffee ground emesis, constipation, diarrhea, hematemesis Genitourinary: ABSENT: dysuria, hematuria Musculoskeletal: ABSENT: joint swelling, muscle weakness Integumentary: ABSENT: pruritus, rash Neurological: ABSENT: confusion, convulsions, focal weakness, memory loss, syncope Psychiatric: ABSENT: anxiety, depression Endocrine: ABSENT: cold intolerance, heat intolerance Hematologic/Lymphatic: ABSENT: easy bleeding, easy bruising Physical Exam Vital Signs: Temp Pulse Resp BP Pulse Ox 98.6 F 85 12 121/68 95 04/06/19 18:41 04/06/19 18:41 04/06/19 18:41 04/06/19 18:41 04/06/19 18:41 Intake & Output 04/04/19 04/05/19 04/06/19 23:59 23:59 23:59 Intake Total 2049 Balance 2049 Weight 67.3 kg General appearance: PRESENT: cooperative, mild distress - Secondary to abdominal pain Head exam: ABSENT: atraumatic, normocephalic Eye exam: ABSENT: conjunctival injection, scleral icterus Ear exam: PRESENT: normal external ear exam. ABSENT: bleeding, drainage Mouth exam: PRESENT: dry mucosa, neck supple Neck exam: ABSENT: thyromegaly, tracheal deviation Respiratory exam: PRESENT: clear to auscultation prabhjot, symmetrical, unlabored Cardiovascular exam: PRESENT: RRR. ABSENT: clicks, gallop, rubs Pulses: PRESENT: normal radial pulses, normal dorsalis pedis pul Vascular exam: PRESENT: normal capillary refill. ABSENT: pallor GI/Abdominal exam: PRESENT: Ramirez's sign, normal bowel sounds, soft, tenderness - Right upper quadrant tenderness to palpation Rectal exam: PRESENT: deferred Extremities exam: ABSENT: joint swelling, pedal edema Musculoskeletal exam: PRESENT: full ROM, normal inspection Neurological exam: PRESENT: alert, oriented to person, oriented to place, oriented to time, oriented to situation, CN II-XII grossly intact. ABSENT: motor sensory deficit Psychiatric exam: PRESENT: appropriate affect, normal mood Skin exam: PRESENT: dry, intact, warm. ABSENT: jaundice, rash, urticaria Results Laboratory Results: 04/06/19 08:30 04/06/19 08:30 04/06/19 04/06/19 08:30 08:30 WBC 17.4 H RBC 4.93 Hgb 15.7 Hct 46.1 MCV 94 MCH 31.9 MCHC 34.1 RDW 12.4 Plt Count 222 Seg Neutrophils % Not Reportable Lymphocytes % Not Reportable Monocytes % Not Reportable Eosinophils % Not Reportable Basophils % Not Reportable Absolute Neutrophils Not Reportable Absolute Lymphocytes Not Reportable Absolute Monocytes Not Reportable Absolute Eosinophils Not Reportable Absolute Basophils Not Reportable Sodium 133.4 L Potassium 4.0 Chloride 94 L Carbon Dioxide 20 L Anion Gap 19 BUN 9 Creatinine 0.90 Est GFR ( Amer) > 60 Est GFR (Non-Af Amer) > 60 Glucose 112 H Calcium 9.4 Total Bilirubin 1.1 AST 44 ALT 42 Alkaline Phosphatase 91 Total Protein 7.8 Albumin 4.6 Lipase 116.7 04/06/19 04/06/19 04/06/19 08:30 08:30 13:12 Creatine Kinase 256 H CK-MB (CK-2) 2.36 Troponin I < 0.012 0.018 Impressions: Chest X-Ray 04/06/19 08:33 IMPRESSION: NO ACUTE DISEASE. Abdomen/Pelvis CT 04/06/19 09:21 IMPRESSION: 1. There is gallbladder wall thickening and pericholecystic fat stranding, with mild hyperemia of the adjacent liver parenchyma. Findings are concerning for acute cholecystitis. There are no radiodense gallstones. 2. Small volume free fluid in the right paracolic gutter, likely reactive. The appendix is normal. Assessment and Plan - Diagnosis (1) Alcohol consumption of more than four drinks per day Is this a current diagnosis for this admission?: Yes Plan: Patient has had prior breaks in consumption of alcohol for numerous days without event. He will be given Valium 5 mg p.o. every 6 hours as a precautionary measure only and will also have available Valium 10 mg IV q. one hour as needed for severe alcohol withdrawal symptoms. (2) HTN (hypertension) Qualifiers: Hypertension type: essential hypertension Qualified Code(s): I10 - Essential (primary) hypertension Is this a current diagnosis for this admission?: Yes Plan: Patient should be continued on his usual antihypertensive regiment in his preoperative and postoperative phase. (3) HLD (hyperlipidemia) Qualifiers: Hyperlipidemia type: unspecified Qualified Code(s): E78.5 - Hyperlipidemia, unspecified Is this a current diagnosis for this admission?: Yes Plan: Patient should be continued on his usual statin therapy and his preoperative and postoperative therapeutic stage. (4) Hypothyroidism Qualifiers: Hypothyroidism type: unspecified Qualified Code(s): E03.9 - Hypothyroidism, unspecified Is this a current diagnosis for this admission?: Yes Plan: Patient should be continued on his thyroid replacement hormone at his current dosage. A thyroid profile will be obtained to assess the efficacy of his current therapy. (5) Cholecystitis Is this a current diagnosis for this admission?: Yes Plan: Surgical service will manage the patient's cholecystitis and operative as well as postoperative care. - Time Time Spent with patient: 15-24 minutes Medications reviewed and adjusted accordingly: Yes Anticipated discharge: Home - Inpatient Certification Based on my medical assessment, after consideration of the patient's comorbidities, presenting symptoms, or acuity I expect that the services needed warrant INPATIENT care.: Yes I certify that my determination is in accordance with my understanding of Medicare's requirements for reasonable and necessary INPATIENT services [42 CFR 412.3e].: Yes Medical Necessity: Need Close Monitoring Due to Risk of Patient Decompensation, Need For IV Fluids, Need for Pain Control, Need for Surgery
[2019-04-07] MEDS: DIAZEPAM 5 MG TABLET PO SCH (05:23)
[2019-04-07] MEDS: CEFAZOLIN 1 GM/D5W RTU 1 GM/50 ML RTUPB IV SCH (05:26)
[2019-04-07] MEDS ORDERED: LEVOTHYROXINE SODIUM 0.088 MG TABLET PO SCH (06:00)
[2019-04-07 07:27] LABS: ALANINE AMINOTRANSFERASE 29 U/L (21-72); ALKALINE PHOSPHATASE 44 U/L (38-126); ANION GAP 10 (5-19); ASPARTATE AMINO TRANSFERASE 30 U/L (17-59); BILIRUBIN,DIRECT 0.3 mg/dL (0.0-0.4); BILIRUBIN,TOTAL 0.6 mg/dL (0.2-1.3); BLOOD UREA NITROGEN 9 mg/dL (7-20); CALCIUM 7.2 mg/dL (8.4-10.2); CARBON DIOXIDE 20 mmol/L (22-30); CHLORIDE 100 mmol/L (98-107); GLUCOSE 128 mg/dL (75-110); HEMATOCRIT 39.6 % (37.9-51.0); MEAN CORPUSCULAR HEMOGLOBIN 32.1 pg (27.0-33.4); MEAN CORPUSCULAR HGB CONC 33.5 g/dL (32.0-36.0); MEAN CORPUSCULAR VOLUME 96 fl (80-97); PLATELET COUNT 140 10^3/uL (150-450); POTASSIUM 3.9 mmol/L (3.6-5.0); RED BLOOD COUNT 4.13 10^6/uL (4.35-5.55); RED CELL DISTRIBUTION WIDTH 12.6 % (11.5-14.0); SODIUM 130.2 mmol/L (137-145); TOTAL PROTEIN 5.7 g/dL (6.3-8.2); WHITE BLOOD COUNT 14.9 10^3/uL (4.0-10.5)
[2019-04-07 07:35] LABS: HEMOGLOBIN 13.2 g/dL (13.5-17.0)
[2019-04-07] MEDS ORDERED: ASPIRIN 81 MG TABLET, CHEWABLE PO SCH (10:00)
[2019-04-07] MEDS ORDERED: LOSARTAN POTASSIUM 50 MG TABLET PO SCH ×2 (10:00)
[2019-04-07] MEDS ORDERED: MULTIVITAMIN TABLET PO SCH (10:00)
[2019-04-07] MEDS ORDERED: FOLIC ACID 1 MG TABLET PO SCH (10:00)
[2019-04-07] MEDS ORDERED: THIAMINE HCL 100 MG TABLET PO SCH (10:00)
[2019-04-07] MEDS ORDERED: (PENDING PHARMACY ID) (Telmisartan [Micardis 80 Mg Tablet] 80 MG) PO SCH (10:00)
[2019-04-07] MEDS ORDERED: PANTOPRAZOLE SODIUM 40 MG TABLET.DR PO SCH (10:00)
[2019-04-07] MEDS ORDERED: (PENDING PHARMACY ID) (Esomeprazole Mag Trihydrate [Nexium] 40 MG) PO SCH (10:00)
[2019-04-07] MEDS ORDERED: (PENDING PHARMACY ID) (Telmisartan [Micardis] 80 MG) PO SCH (10:00)
[2019-04-07] MEDS ORDERED: ATORVASTATIN CALCIUM 40 MG TABLET PO SCH (10:00)
[2019-04-07] MEDS ORDERED: FERROUS SULFATE 325 MG TABLET PO SCH (10:00)
--- NOTE | 2019-04-07 10:05 | PDOC DISCHARGE SUMMARY ---
General - Admit/Disc Date/PCP Admission Date/Primary Care Provider: 04/06/19 11:42 ZENIA COOK MD Discharge Date: 04/07/19 - Additional Information Resuscitation Status: Full Code Discharge Diet: As Tolerated Discharge Activity: No Lifting Over 10 Pounds Home Medications: Aspirin [Ecotrin 81 mg EC Tablet] 81 mg PO DAILY 04/06/19 Atorvastatin Calcium [Lipitor 40 mg Tablet] 40 mg PO DAILY 04/06/19 Esomeprazole Mag Trihydrate [Nexium] 40 mg PO DAILY 04/06/19 Ferrous Sulfate [Feosol 325 mg Tablet] 325 mg PO DAILY 04/06/19 Fexofenadine HCl [Serenity] 180 mg PO DAILY 04/06/19 Levothyroxine Sodium [Synthroid 0.088 mg Tablet] 88 mcg PO Q6AM 04/06/19 Telmisartan [Micardis 80 mg Tablet] 80 mg PO DAILY 04/06/19 History of Present Illness History of Present Illness: DAPHNE SCHMIDT is a 68 year old male admitted with acute cholecystitis. He was taken the operating room for definitive surgical care. The patient was then taken to the floor in stable condition. Hospital Course Hospital Course: The patient remained on the floor in stable condition. Some difficulty with urination, however this is normal for him. I prescribed Flomax 0.4 mg p.o. jenise y. Patient was eating normally, ambulating, and at this time it was felt that he had reached maximal hospital benefit. Currently, he is medically fit for discharge. Physical Exam Vital Signs: Temp Pulse Resp BP Pulse Ox 98.1 F 77 16 109/73 97 04/07/19 07:14 04/07/19 07:14 04/07/19 07:14 04/07/19 07:14 04/07/19 07:14 Intake & Output 04/06/19 04/07/19 04/08/19 06:59 06:59 06:59 Intake Total 6435.2 Output Total 450 Balance 5985.2 Weight 67.3 kg Results Laboratory Results: 04/07/19 06:39 04/07/19 06:39 04/07/19 04/07/19 06:39 06:39 WBC 14.9 H RBC 4.13 L Hgb 13.2 L D Hct 39.6 MCV 96 MCH 32.1 MCHC 33.5 RDW 12.6 Plt Count 140 L Sodium 130.2 L Potassium 3.9 Chloride 100 Carbon Dioxide 20 L Anion Gap 10 BUN 9 Creatinine 0.87 Est GFR ( Amer) > 60 Est GFR (Non-Af Amer) > 60 Glucose 128 H Calcium 7.2 L Total Bilirubin 0.6 AST 30 ALT 29 Alkaline Phosphatase 44 Total Protein 5.7 L Albumin 3.0 L 04/06/19 04/06/19 04/06/19 08:30 08:30 13:12 Creatine Kinase 256 H CK-MB (CK-2) 2.36 Troponin I < 0.012 0.018 Impressions: Chest X-Ray 04/06/19 08:33 IMPRESSION: NO ACUTE DISEASE. Abdomen/Pelvis CT 04/06/19 09:21 IMPRESSION: 1. There is gallbladder wall thickening and pericholecystic fat stranding, with mild hyperemia of the adjacent liver parenchyma. Findings are concerning for acute cholecystitis. There are no radiodense gallstones. 2. Small volume free fluid in the right paracolic gutter, likely reactive. The appendix is normal. Qualifiers - * PATIENT BEING DISCHARGED WITH ANY OF THE FOLLOWING DIAGNOSIS: No Acute Heart Failure Is this a Heart Failure Patient?: No Plan Discharge Plan: Discharge home. Diet as tolerated. Activity: No lifting greater than 10 pounds x 2 weeks. Follow-up with [facility] in 7 to 10 days. Okay to shower. No tub baths or swimming pools x2 weeks. [place] 10/325 mg p.o. every 6 hours as needed for pain. Ibuprofen 800 mg p.o. 3 times daily with meals. Flomax 0.4 mg p.o. daily. Time Spent: Less than 30 Minutes
[2019-04-07] MEDS ORDERED: TAMSULOSIN HCL 0.4 MG CAP.SR.24H PO ONE (10:30)
[2019-04-07 11:10] VITALS: BP 121/68
== END 2019-04-07 11:50 | disposition home or self-care (01) ==
LOC: ER 08:05 → INTOOBSV 11:42 → EH 11:42 → 4S 17:16
PROVIDERS: ADMIT Surgery; ATTEND Surgery
PROC: 0FT44ZZ Resection of Gallbladder, Percutaneous Endoscopic Approach (ICD-10-PCS; principal; 2019-04-06 15:30)
DX: K80.12 Calculus of gallbladder with acute and chronic cholecystitis without obstruction (principal); R39.198 Other difficulties with micturition; K21.9 Gastro-esophageal reflux disease without esophagitis; E78.5 Hyperlipidemia, unspecified; I10 Essential (primary) hypertension; R63.0 Anorexia; E03.9 Hypothyroidism, unspecified; F10.20 Alcohol dependence, uncomplicated; Z79.82 Long term (current) use of aspirin; Z79.899 Other long term (current) drug therapy; Z82.49 Family history of ischemic heart disease and other diseases of the circulatory system
CPT/HCPCS: 93005; 99285; 96361; 96374; 96375; 36415 ×2; 82553; 82550; 83690; 85025; 85027; 80053 ×2; 84484; 88304 ×2; 71045; 74177; 93010; 47562; J2250; A9270 ×9; J0690 ×3; J3490 ×6; J2710; J1170; J2370; J0330; J3411; J2405; J7030; J7120; J2704; J0696; 790; G0378; J3010